=== PATIENT | male | born 1960 | race Caucasian/White ===

== ENCOUNTER 2017-05-02 10:08 | Day surgery (SDC) | payer OTHER ==
[2017-04-28 15:27] VITALS: BMI 34.0
[2017-05-02] MEDS ORDERED: PROPOFOL 20 ML ONE ×3 (10:26→11:05)
[2017-05-02 10:47] VITALS: TEMP 98.5
[2017-05-02 12:10] VITALS: BP 145/86; PULSE 60
--- NOTE | 2017-05-05 12:36 | PATH ---
Surgical Pathology Report Patient Name: YULI TODD [facility]. Rec. #: [id number] /Age/Gender: 1960 (Age: 56) / M Account: [id number] Location: [facility]ENDOSCOPY Taken: 05/02/2017 Received: 05/02/2017 Reported: 05/05/2017 Physicians: Gasper Og M.D. Specimen(s) Received A: BX DUODENUM B: BX ANTRUM C: BX TRANSVERSE COLON Clinical History GERD, family history of colonic polyps Postoperative diagnosis: Rule out celiac disease, rule out H. Pylori, mild gastritis, colonic polyp Final Diagnosis A. DUODENUM, BIOPSY: DUODENAL MUCOSA WITH NO PATHOLOGIC FINDINGS. Note: Features suggestive of celiac disease are not identified in this biopsy. B. ANTRUM, BIOPSY: MILD CHRONIC GASTRITIS. IMMUNOSTAIN IS NEGATIVE FOR H. PYLORI ORGANISMS. C. TRANSVERSE, BIOPSY: TUBULAR ADENOMA. Electronically Signed Oralia Chan M.D. Gross Description A. Received in formalin, labeled "duodenum" are 2 peter, irregular portions of soft tissue measuring 0.3 and 0.5 cm. in greatest dimension. The specimens are submitted in toto in one cassette. B. Received in formalin, labeled "antrum" are 2 peter, irregular portions of soft tissue measuring 0.3 and 0.4 cm. in greatest dimension. The specimens are submitted in toto in one cassette. C. Received in formalin, labeled "transverse" are 2 peter, irregular portions of soft tissue averaging 0.2 cm. in greatest dimension. The specimens are submitted in toto in one cassette. 05/02/201705/02/2017
== END 2017-05-02 12:14 | disposition home or self-care (01) ==
LOC: FASU-ENDO 10:08
PROVIDERS: ATTEND Internal Medicine Gastroenterology
PROC: 0DBL8ZX Excision of Transverse Colon, Via Natural or Artificial Opening Endoscopic, Diagnostic (ICD-10-PCS; principal; 2017-05-02 11:05)
PROC: 0DB98ZX Excision of Duodenum, Via Natural or Artificial Opening Endoscopic, Diagnostic (ICD-10-PCS; 2017-05-02 11:05)
PROC: 0DB68ZX Excision of Stomach, Via Natural or Artificial Opening Endoscopic, Diagnostic (ICD-10-PCS; 2017-05-02 11:05)
DX: Z86.010 Personal history of colon polyps (principal); K57.30 Diverticulosis of large intestine without perforation or abscess without bleeding; Z91.19 Patient's noncompliance with other medical treatment and regimen; R12 Heartburn; D12.3 Benign neoplasm of transverse colon; K29.50 Unspecified chronic gastritis without bleeding
CPT/HCPCS: 82962; 88305-TC; 88342-TC

== ENCOUNTER 2017-11-27 20:37 | Emergency (ER) | payer OTHER ==
[2017-11-27 20:58] VITALS: BP 164/88; PULSE 95; TEMP 98.1; BMI 34.0
[2017-11-27] MEDS ORDERED: IBUPROFEN 400 MG TABLET (FP) PO ONE ×2 (21:38→21:43)
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
== END 2017-11-27 22:00 | disposition home or self-care (01) ==
LOC: JERFT 20:37
DX: S39.012A Strain of muscle, fascia and tendon of lower back, initial encounter (principal); S60.812A Abrasion of left wrist, initial encounter; S60.811A Abrasion of right wrist, initial encounter; Y35.813A Legal intervention involving manhandling, suspect injured, initial encounter; Y93.89 Activity, other specified; Y92.488 Other paved roadways as the place of occurrence of the external cause; Y99.8 Other external cause status
CPT/HCPCS: 99281-25

== ENCOUNTER 2018-06-16 17:25 | Emergency (ER) | payer OTHER ==
[2018-06-16 17:48] VITALS: TEMP 97.5; BMI 35.6
[2018-06-16] MEDS ORDERED: ASPIRIN 81 MG CHEWABLE TABLETS PO ONE (18:23)
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
[2018-06-16] MEDS ORDERED: ASPIRIN 81 MG CHEWABLE TABLETS ONE (18:37)
[2018-06-16 18:57] LABS: BASO % 1.1 % (0-2.0); EOS % 1.7 % (0-4.5); HEMATOCRIT 42.8 % (35.4-49); HEMOGLOBIN 14.8 GM/dL (11.7-16.9); LYMPH % 20.7 % (8-40); MCH 31.4 pg (25.7-33.7); MCHC 34.7 g/dl (32.0-35.9); MEAN CELL VOLUME 90.7 fl (80-96); MEAN PLT VOLUME 7.7 fl (7.5-11.1); MONO % 6.7 % (3.8-10.2); NEUT % 69.8 % (42.8-82.8); PLATELET COUNT 247 K/MM3 (134-434); RBC 4.71 M/mm3 (4.00-5.60); RDW 14.3 % (11.9-15.9)
[2018-06-16 19:36] LABS: ALBUMIN 4.1 g/dl (3.4-5.0); ALK PHOS 129 U/L (45-117); ANION GAP 8 MMOL/L (8-16); BILIRUBIN,TOTAL 0.7 mg/dL (0.2-1); BLOOD UREA NITROGEN 19 mg/dL (7-18); CALCIUM 10.6 mg/dL (8.5-10.1); CHLORIDE 108 mmol/L (98-107); CO2 23 mmol/L (21-32); CREATININE 0.9 mg/dL (0.55-1.3); GLUCOSE,RANDOM 119 mg/dL (74-106); LIPASE 106 U/L (73-393); POTASSIUM 4.1 mmol/L (3.5-5.1); SGOT/AST 48 U/L (15-37); SGPT/ALT 59 U/L (13-61); SODIUM 139 mmol/L (136-145); TOT PROT 7.2 g/dl (6.4-8.2)
[2018-06-17 00:31] VITALS: BP 137/86; PULSE 66
--- NOTE | 2018-06-19 10:42 | EKG ---
Test Reason : Blood Pressure : / mmHG Vent. Rate : 064 BPM Atrial Rate : 064 BPM P-R Int : 154 ms QRS Dur : 086 ms QT Int : 406 ms P-R-T Axes : 058 054 056 degrees QTc Int : 418 ms NORMAL SINUS RHYTHM NORMAL ECG WHEN COMPARED WITH ECG OF 01-SEP-2010 04:33, NO SIGNIFICANT CHANGE WAS FOUND Confirmed by YEE MCDANIELS MD ([id number]) on 06/19/2018 10:41:54 AM Referred By: Confirmed By:YEE MCDANIELS MD
== END 2018-06-17 00:26 | disposition home or self-care (01) ==
LOC: JER 17:25
DX: R07.9 Chest pain, unspecified (principal); I10 Essential (primary) hypertension; E11.9 Type 2 diabetes mellitus without complications; R42 Dizziness and giddiness; F41.9 Anxiety disorder, unspecified
CPT/HCPCS: 36415; 71046-TC-FY; 71275-TC; 74175-TC; 80053; 82550; 83690; 84484; 85025; 93005; 93010; 99285-25

== ENCOUNTER 2019-12-08 08:22 | Emergency (ER) | payer OTHER ==
--- NOTE | 2019-12-08 08:33 | PDOC ---
History of Present Illness - General Chief Complaint: Blood Pressure Problem Stated Complaint: HIGH BLOOD PRESSURE Time Seen by Provider: 12/08/19 08:32 History Source: Patient, EMS, Old Records Exam Limitations: No Limitations - History of Present Illness Initial Comments: 12/08/19 08:32 Martín Huff is a 59M with PMH HTN, DM, HTN, gout, ZOFIA, asthma, anxiety, chronic back pain, parathyroid resection, presenting with elevated blood pressure and headache. Patient reports that he woke up this morning and felt like his blood pressure was high, checked it and it was SBP 195. Took his anti-HTN medications including atenolol, verapamil, and hydralazine, and after felt a bit dizzy with positional nausea worse when reclining and had to lie down. Reports that he normally feels dizzy after taking his medications, but was concerned about BP and called EMS for evaluation. Also felt anxious, took 0.25mg prescribed Xanax. Checks BP 3x per day, used to be 120/80, but had insurance changes and had to get long-acting verapamil instead of short-acting, BP has since been 160/90. Has new PMD due to insurance change, [facility] at [facility], only seen once for evaluation before parathyroid resection in August. Has recently changed prescription for glasses, trialled for 3 weeks but has had eye strain and headaches while wearing them, went to urgent care and given eye drops and prednisone for eye muscle swelling, has since switched to old glasses. Denies any recent illness, no F/V, no vomiting, no diarrhea, no urinary sx, no abd pain. Had gout 2 weeks ago and resolved with colchicine and NSAIDs. Chronic lower back pain on Flexeril. PSH parathyroidectomy and left testicle removal as a teenager. Denies alcohol/drugs/tobacco. NKDA. Past History - Medical History Allergies/Adverse Reactions: Allergies Allergy/AdvReac Type Severity Reaction Status Date / Time No Known Drug Allergies Allergy Verified 12/08/19 08:57 tuna oil AdvReac Severe VERTIGO Verified 12/08/19 08:57 Home Medications: Ambulatory Orders Atenolol [Tenormin] 25 mg PO BID 10/21/11 Clonazepam [Klonopin] 0.5 mg PO HS PRN 10/21/11 Verapamil HCl [Calan] 160 mg PO HS 12/16/15 hydrALAZINE HCL [Apresoline -] 10 mg PO QID 12/16/15 Acetaminophen 650 mg PO ASDIR PRN 04/28/17 Alprazolam [Xanax] 0.5 mg PO ASDIR PRN 04/28/17 Aspirin [ASA -] 81 mg PO DAILY 04/28/17 Atorvastatin Ca [Lipitor] 10 mg PO HS 04/28/17 Cholecalciferol (Vitamin D3) [Vitamin D3] 2,000 unit PO DAILY 04/28/17 Ibuprofen [Advil -] 400 mg PO TID PRN 04/28/17 [place]-3S/Dha/Epa/Fish Oil [Fish Oil 1,200 mg Softgel] 1 each PO HS 04/28/17 metFORMIN HCL [Metformin HCl] 500 mg PO BID 04/28/17 Meclizine HCl [Antivert -] 25 mg PO PRN 06/16/18 Pantoprazole Sodium [Protonix] 40 mg PO DAILY 06/16/18 Potassium Citrate [Potassium Citrate ER] 10 meq PO DAILY 06/16/18 Methocarbamol [Robaxin -] 750 mg PO BID PRN #14 tablet MDD 2 tab 06/17/18 Anemia: No Asthma: No Cancer: No Cardiac Disorders: No CVA: No COPD: No CHF: No Dementia: No Diabetes: Yes (NIDDM,"MILD") GI Disorders: Yes (Gallstone,BLEEDING HEMORRHOIDECTOMY;?IBS? SIGMOIDOSCOPY IN HIS S) Disorders: No HTN: Yes Hypercholesterolemia: Yes Liver Disease: Yes (FATTY LIVER) Psychiatric Problems: Yes (anxiety) Seizures: No Thyroid Disease: No - Surgical History Abdominal Surgery: No Appendectomy: No Cardiac Surgery: No Cholecystectomy: No Lung Surgery: No Neurologic Surgery: No Orthopedic Surgery: No - Immunization History Immunization Up to Date: No - Psycho-Social/Smoking History Smoking Status: No Smoking History: Never smoked Have you smoked in the past 12 months: No Number of Cigarettes Smoked Daily: 0 If you are a former smoker, when did you quit?: 2004 Cigars Per Day: 0 Review of Systems - Review of Systems Able to Perform ROS?: Yes Constitutional: No: Symptoms Reported HEENTM: Yes: Eye Pain. No: Blurred Vision, Recent change in vision Respiratory: No: Symptoms reported Cardiac (ROS): No: Symptoms Reported ABD/GI: Yes: Nausea. No: Constipated, Diarrhea, Poor Appetite, Poor Fluid Intake, Vomiting, Abdominal cramping : No: Symptoms Reported Musculoskeletal: Yes: Back Pain Integumentary: No: Symptoms Reported Neurological: Yes: Headache Psychiatric: Yes: Anxiety Endocrine: No: Symptoms Reported Hematologic/Lymphatic: No: Symptoms Reported All Other Systems: Reviewed and Negative *Physical Exam - Physical Exam General Appearance: Yes: Nourished, Appropriately Dressed, Obese, Other (tall, resting comfortably in bed in NAD). No: Apparent Distress HEENT: positive: EOMI, TRACY, Normal Voice, Symmetrical, Pharynx Normal, Hearing Grossly Normal. negative: Scleral Icterus (R), Scleral Icterus (L), Pharyngeal Erythema, Tonsillar Exudate, Tonsillar Erythema Neck: positive: Trachea midline, Normal Thyroid, Supple. negative: Tender, Rigid, Lymphadenopathy (R), Lymphadenopathy (L), Tender lateral, Tender midline Respiratory/Chest: positive: Lungs Clear, Normal Breath Sounds. negative: Chest Tender, Respiratory Distress, Accessory Muscle Use, Crackles, Rales, Rhonchi, Stridor, Wheezing Cardiovascular: positive: Regular Rhythm, Regular Rate. negative: Murmur, Tachycardia Gastrointestinal/Abdominal: positive: Normal Bowel Sounds, Flat, Soft. negative: Tender, Organomegaly, Pulsatile Mass, Guarding, Rebound Musculoskeletal: positive: Normal Inspection. negative: CVA Tenderness, Decreased Range of Motion, Vertebral Tenderness Extremity: positive: Normal Capillary Refill, Normal Inspection, Normal Range of Motion, Pelvis Stable. negative: Tender, Pedal Edema, Swelling, Calf Tenderness Integumentary: positive: Normal Color, Dry, Warm Neurologic: positive: prescription benefit specialist II-XII NML intact, Fully Oriented, Alert, Normal Mood/Affect, Normal Response, Motor Strength 5/5, Finger to Nose (normal), Other (gait normal, bilateral vision 20/20 with corrective lenses). negative: Facial Droop, Sensory Deficit ED Treatment Course - LABORATORY CBC & Chemistry Diagram: 12/08/19 09:33 12/08/19 09:33 Medical Decision Making - Medical Decision Making 12/08/19 08:33 Patient has PMH HTN, DM with recent medication changes and chronic eye strain and headaches with new glasses prescription, presents with elevated BP at home with lightheadedness and nausea only after taking anti-HTN medications. BP now 150/70, patient asymptomatic, reports eye strain but has excellent vision with and without glasses as well as some dizziness, no nausea, no vomiting, no HUIZAR. Given lower BP and no symptoms, lower concern for HTN emergency. Considering ACS, hyperglycemia, infection as etiology for HTN, but likely related to medication change. Getting CMP/CBC/ECG/BGM/CP for evaluation of HTN. 12/08/19 09:57 BGM 141 ECG sinus bradycardia, HR 55, QTc 407, no AISLINN/D or TWI. Slow HR consistent with beta blockade and AM medications. Labs notable for: - CBC WNL - CMP WNL 12/08/19 10:33 No abnormalities noted on labs or ECG. Patient feeling well. Discussed importance of BP management medications and follow-up with professor of chemical engineering for glasses prescription. Patient will see his regular doctors for further care. Stable for d/c home. Discharge - Discharge Information Problems reviewed: Yes Clinical Impression/Diagnosis: Elevated blood pressure reading Condition: Stable Disposition: HOME - Follow up/Referral Referrals: Rony Ernandez [Non Staff, Medical] - - Patient Discharge Instructions Patient Printed Discharge Instructions: DI for High Blood Pressure, How to Monitor Your Blood Pressure at Home Additional Instructions: Today you were evaluated for high blood pressure and headache. Your labs are all normal, and you do not have any emergent diseases that need treatment. Your bl ood pressure changes throughout the day. Check it once a day at the same time every day to track changes. If it remains over 150/90, please contact your doctor to change your medications. If your blood pressure is over 180/90, recheck it a bit later when you are more calm, as being stressed can cause high blood pressure. Your eyeglasses are likely the wrong prescription, and you are getting headaches from this. Please see your professor of chemical engineering or roll forming supervisor for further care, and avoid wearing glasses that cause issues. Otherwise, take our medications as prescribed. If you experience any worsening headache, nausea, vomiting, vision changes, chest pain, dizziness, or any other new or concerning symptoms, please return to the emergency room. - Post Discharge Activity
--- OUTSIDE RECORDS SUMMARY | 2019-12-08 08:45 | XMS ---
:1960 Author Organization [facility] Care Team Providers Name Role Phone Jeffery Hickman MD Unavailable Unavailable [facility], [facility] Unavailable Unavailable Ondina Cagle NP Unavailable Unavailable Gisele Maddox MD Unavailable Unavailable Re-disclosure Warning The records that you are about to access may contain information from federally- assisted alcohol or drug abuse programs. If such information is present, then the following federally mandated warning applies: This information has been disclosed to you from records protected by federal confidentiality rules (42 CFR part 2). The federal rules prohibit you from making any further disclosure of this information unless further disclosure is expressly permitted by the written consent of the person to whom it pertains or as otherwise permitted by 42 CFR part 2. A general authorization for the release of medical or other information is NOT sufficient for this purpose. The Federal rules restrict any use of the information to criminally investigate or prosecute any alcohol or drug abuse patient.The records that you are about to access may contain highly sensitive health information, the redisclosure of which is protected by Article 27-F of the [place] State Public Health law. If you continue you may haveaccess to information: Regarding HIV / AIDS; Provided by facilities licensed or operated by the [facility] Office of Mental Health; or Provided by the [facility] Office for People With Developmental Disabilities. If such information is present, then the following [facility] mandated warning applies: This information has been disclosed to you from confidential records which are protected by state law. State law prohibits you from making any further disclosure of this information without the specific written consent of the person to whom it pertains, or as otherwise permitted by law. Any unauthorized further disclosure in violation of state law may result in a fine or nursing home sentence or both. A general authorization for the release of medical or other information is NOT sufficient authorization for further disclosure. Advance Directives Directive Description Chiropractic Teacher Stringed Instrument Repairer Status Observation Data Description Source(s ) Advance Y - completed [place] directive [facility] Allergies and Adverse Reactions Type Description Substance Reaction Status Data Source(s ) Drug allergy topiramate topiramate DOUBLE VISION White Sy [facility] Drug allergy paroxetine paroxetine DIZZINESS MO [facility] Drug allergy oxycodone oxycodone nausea [facility] Drug allergy DEVON Inhibitors DEVON Inhibitors COUGH [facility] Drug allergy acetaminophen acetaminophen nausea [facility] No Known No Known Allergies No Known Allergies eCW2 (Open Allergies Door [facility]) No Known No Known Allergies No Known Allergies eCW2 (Open Allergies Door [facility]) No Known No Known Allergies No Known Allergies eCW2 (Open Allergies Door [facility]) No Known No Known Allergies No Known Allergies eCW2 (Open Allergies Door [facility]) Encounters Encounter Providers Location Date Indications Data Source(s ) Outpatient Attender: Jeffery 06/22/2019 to LEFT [place] Vick PORRAS 09:45:00 HYPERPARATHYROIDISM LEFT Hospital AM EDT - THYROID NODULE 08/24/2019 09:12:00 AM EDT to LEFT HYPERPARATHYROIDISM LEFT THYROID NODULE Patient discharged. 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 Outpatient Attender: Gisele 01/18/2019 HYPERPARATHYROIDISM [place] Maddox MD 04:22:00 PM EST (ICD-252.01) Hospita l HYPERPARATHYROIDISM (ICD-252.01) [place] [facility] [place] [facility] 05/16/2018 12:00:00 AM eCW2 ([facility] EDT [facility]) [place] [facility] [place] [facility] 03/13/2018 12:00:00 AM eCW2 ([facility] EST [facility]) [place] [facility] [place] [facility] 02/16/2018 12:00:00 AM eCW2 (Open Door [facility]) [place] [facility] [place] [facility] 01/31/2018 12:00:00 AM eCW2 (Open Door [facility]) Functional Status Immunizations Vaccine Date Status Description Data Source(s) No Known Immunizations completed eCW2 (Open Door [facility]) No Known Immunizations completed eCW2 (Open Door [facility]) No Known Immunizations completed eCW2 (Open [facility]) No Known Immunizations completed eCW2 (Open Door [facility]) Medications Medication Brand Start Product Dose Route Administrative Pharmacy [facility] Indications Reaction Description Data Name Date Form Instructions Instructions Source(s) Ketorolac Ketoro 08/23/ TABLET 10 mg ORAL active W gloria Tromethamin lac 2020 [place] e 10 MG Tromet 01:40: Hospital Oral Tablet hamine 00 PM EDT potassium Potass SUSTAINE 15 ORAL active Wh ite citrate 15 ium D meq [place] MEQ Citrat RELEASE Hospital Extended e TABLET Release Oral Tablet [Urocit-K] Potassium Citrate pantoprazol pantop active 1 tab(s) eCW2 (Open e 40 MG razole Door Delayed 40 mg Family Release Medical Oral Tablet [place]) pantoprazol e 40 mg Hydrochlori UNK active eCW2 ( Open c Acid Door [facility]) Hydrochlori UNK active eCW2 ( Open c Acid Door [facility]) Verapamil Verapa TABLET 120 ORAL active Whit e hydrochlori mil mg [place] de 120 MG H[facility] Hospital Oral Tablet Verapamil Hcl atorvastati atorva active 1 tab(s) eCW2 (Open n 10 MG statin Door Oral Tablet 10 mg Family atorvastati Medical n 10 mg [place]) Na 650 active White Bicarbinate [place] [facility] verapamil UNK active 1 cap(s) eCW2 (Open 120 mg/24 Door hours [facility]) 24 HR metfor active 1 tab(s) eCW2 ( Open Metformin min Door hydrochlori 500 mg Family de 500 MG Medical Extended Center) Release Oral Tablet metformin 500 mg Atenolol 25 Atenol TABLET 25 mg ORAL active W gloria MG Oral ol [place] Tablet Hospital pantoprazol pantop active 1 tab(s) eCW2 (Open e 40 MG razole Door Delayed 40 mg Family Release Medical Oral Tablet [place]) pantoprazol e 40 mg 24 HR metfor active 1 tab(s) eCW2 ( Open Metformin min Door hydrochlori 500 mg Family de 500 MG [facility] Extended [place]) Release Oral Tablet metformin 500 mg Alprazolam Xanax active 1 tab(s) eC W2 (Open 0.25 MG 0.25 Door Oral Tablet mg Family [Xanax] Medical Xanax 0.25 [place]) mg verapamil UNK active 1 cap(s) eCW2 (Open 120 mg/24 Door hours [facility]) pantoprazol Pantop TABLET 40 mg ORAL active W gloria e 40 MG razole [place] Delayed Sodium Hospital Release Oral Tablet [Protonix] Pantoprazol e Sodium Hydrochlori UNK active eCW2 ( Open c Acid Door [facility]) Hydralazine Hydral TABLET 20 mg ORAL active W [place] Hydrochlori azine [place] de 50 MG [facility] Oral Tablet Hydralazine Hcl Alprazolam Xanax active 1 tab(s) eC W2 (Open 0.25 MG 0.25 Door Oral Tablet mg Family [Xanax] Medical Xanax 0.25 [place]) mg 24 HR Metfor TABLET 500 ORAL active White Metformin min 24 HR mg [place] hydrochlori Hcl SUSTAINE Hosp ital de 500 MG D Extended RELEASE Release Oral Tablet [Glucophage ] Metformin Hcl atorvastati atorva active 1 tab(s) eCW2 (Open n 10 MG statin Door Oral Tablet 10 mg Family atorvastati Medical n 10 mg Center) Alprazolam Xanax active 1 tab(s) eC W2 (Open 0.25 MG 0.25 Door Oral Tablet mg [facility] [Xanax] Medical Xanax 0.25 Center) mg verapamil UNK active 1 cap(s) eCW2 (Open 120 mg/24 Door hours [facility]) verapamil UNK active 1 cap(s) eCW2 (Open 120 mg/24 Door hours [facility]) 24 HR metfor active 1 tab(s) eCW2 ( Open Metformin min Door hydrochlori 500 mg Family de 500 MG [facility] Extended [facility]) Release Oral Tablet metformin 500 mg [place]-3-Aci CAPSULE 1 ORAL active Whi te d Ethyl {Caps [place] Esters [facility]} [facility] pantoprazol pantop active 1 tab(s) eCW2 (Open e 40 MG razole Door Delayed 40 mg Family Release Medical Oral Tablet [place]) pantoprazol e 40 mg 24 HR metfor active 1 tab(s) eCW2 ( Open Metformin min Door hydrochlori 500 mg Family de 500 MG Medical Extended [place]) Release Oral Tablet metformin 500 mg atorvastati Atorva TABLET 10 mg ORAL active [place] n 10 MG statin [place] Oral Tablet [facility] [Lipitor] m Atorvastati n Calcium Hydrochlori UNK active eCW2 ( Open c Acid Door [facility]) atorvastati atorva active 1 tab(s) eCW2 (Open n 10 MG statin Door Oral Tablet 10 mg [facility] atorvastati Medical n 10 mg [place]) Alprazolam Xanax active 1 tab(s) eC W2 (Open 0.25 MG 0.25 Door Oral Tablet mg [facility] [Xanax] Medical Xanax 0.25 [place]) mg atorvastati atorva active 1 tab(s) eCW2 (Open n 10 MG statin Door Oral Tablet 10 mg [facility] atorvastati Medical n 10 mg [place]) pantoprazol pantop active 1 tab(s) eCW2 (Open e 40 MG razole Door Delayed 40 mg Family Release Medical Oral Tablet [place]) pantoprazol e 40 mg Insurance Providers Payer name Policy type Policy ID Covered Covered democrat's Policy P chidi / Coverage democrat ID relationship to [place] Inf ormation type o[place]a AFFINITY [id number] PT 101 HEALTH PLAN [employer] [id number] PT [id number] 101 HEALTH PLAN [facility] [id number] PT [id number] PLAN POS [facility] [id number] PT [id number] PLAN POS [facility] [id number] PT [id number] PLAN [place] [id number] FA [id number] 1 HEALTHCARE O [facility] [id number] FA [id number] [facility] [id number] SP [id number] [employer] 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 [id number] SP [id number] HIP HMO [id number] SP [id number] Problems, Conditions, and Diagnoses Code Display Name Description Problem Type Effective Data Dates Source(s) Unknown Problems Unknown Problem eCW2 (Op en Problems Door [facility]) Unknown Problems Unknown Problem eCW2 (Op en Problems Door [facility]) Unknown Problems Unknown Problem eCW2 (Op en Problems Door [facility]) Unknown Problems Unknown Problem eCW2 (Op en Problems Door [facility]) G47.33 Obstructive sleep apnea G47.33 Diagnosis 08/24/2019 [place] (adult) (pediatric) 09:11:00 AM Hosp ital EDT Z88.5 Allergy status to Z88.5 Diagnosis 08/24/2019 [place] narcotic agent status 09:11:00 AM Ho spital EDT Z79.899 Other rn long term care Z79.899 Diagnosis 08/24/2019 [place] (current) drug therapy 09:11:00 AM H ospital EDT M10.9 Gout, unspecified M10.9 Diagnosis 08/24/2019 [place] 09:11:00 AM Hospital EDT 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 e [place] unspecified 11:19:00 AM Hospital EST Surgeries/Procedures Procedure Description Date Indications Data Source(s) Oxygen therapy 08/24/2019 [facility] (procedure) 12:00:00 AM EDT PRDNTL SCAL&ROOT PLAN 05/16/2018 eCW2 ( Open Door 4></div>TEETH-QUAD 12:00:00 AM EDT [facility]) Dental Office Visit - 05/16/2018 eCW2 ( Open Door Routine 12:00:00 AM EDT [facility]) COMP ORAL EVALUATION - 01/31/2018 eCW2 (Open Door NEW/EST PT 12:00:00 AM EST [facility] ADDITIONAL PA X-RAY 01/31/2018 eCW2 (Op en Door 12:00:00 AM EST [facility] ADDITIONAL PA X-RAY 01/31/2018 eCW2 (Op en Door 12:00:00 AM EST [facility] ADDITIONAL PA X-RAY 01/31/2018 eCW2 (Op en Door 12:00:00 AM EST [facility] ADDITIONAL PA X-RAY 01/31/2018 eCW2 (Op en Door 12:00:00 AM EST [facility]) BITEWINGS - FOUR FILMS 01/31/2018 eCW2 ([facility] 12:00:00 AM EST [facility]) X-RAY PANORAMIC - MAXIL 01/31/2018 eCW2 (Open Door & NATALIA SINGLE 12:00:00 AM EST Family [facility]) Results ID Date Data Source [id number] 08/24/2019 02:22:00 PM EDT [facility] Custom 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 in Capillary blood by Glucometer ID Date Data Source [id number] 08/24/2019 01:26:00 PM EDT [facility] Name Value Range Interpretation Code Description Data Supporting Source(s) Document(s ) 15 MINS 33.9 pg/mL [facility] ID Date Data Source [id number] 08/24/2019 01:15:00 PM EDT [facility] Name Value Range Interpretation Code Description Data Supporting Source(s) Document(s ) 5 MINS 37.5 pg/mL [facility] ID Date Data Source [id number] 08/24/2019 01:10:00 PM EDT [facility] TIME ZERO SPECIMEN Name Value Range Interpretation Description Data Sup porting Code Source(s) Document(s ) MANIPULATION 78.3 [place] IOPTH pg/mL Hospital ID Date Data Source [id number] 08/24/2019 12:50:00 PM EDT [facility] Name Value Range Interpretation Description Data Sup porting Code Source(s) Document(s ) BASELINE 283.0 [place] IOPTH pg/mL Hospital ID Date Data Source [id number] 08/09/2019 11:36:00 AM EDT [facility] Name Value Range Interpretation Code Description Data Mago rce(s) Supporting Document(s ) COV2 [facility] This lab was ordered by ANUPAMA STODDARD and reported by [facility]. Procedure Social History Code Duration Value Status Description Data Source(s ) Smoking Unknown if ever completed Unknown if ever [facility] smoked smoked Hospital Smoking Unknown if ever completed Unknown if ever eCW2 (Open Door smoked smoked [facility]) Smoking Unknown if ever completed Unknown if ever eCW2 (Open Door smoked smoked [facility]) Smoking Unknown if ever completed Unknown if ever eCW2 (Open Door smoked smoked [facility]) Smoking Unknown if ever completed Unknown if ever eCW2 (Open Door smoked smoked [facility]) Vital Signs ID Date Data Source UNK Name Value Range Interpretation Code Description Data Source(s) Diastolic blood 90 mm[Hg] 90 mm[Hg] [facility] pressure Hospital Systolic blood 148 mm[Hg] 148 mm[Hg] [facility] pressure Hospital Respiratory rate 16 /min 16 /min [facility] Heart rate 77 /min 77 /min [facility] Body temperature 36.31051 Donna 36.83091 Donna [facility] Body temperature 98.0 [degF] 98.0 [degF] [facility] Body mass index 35.9 kg/m2 35.9 kg/m2 [facility] (BMI) [Ratio] Hospital Body weight 272 [lb_av] 272 [lb_av] [facility] Diastolic blood mm[Hg] eCW2 (Ope n Door pressure [facility]) Systolic blood mm[Hg] eCW2 (Open Door pressure [facility]) Diastolic blood mm[Hg] eCW2 (Ope n Door pressure [facility]) Systolic blood mm[Hg] eCW2 (Open Door pressure [facility]) Diastolic blood 84 mm[Hg] 84 mm[Hg] eCW2 (Ope n Door [facility]) Systolic blood 132 mm[Hg] 132 mm[Hg] eCW2 (Open Door [facility])
[2019-12-08 08:57] VITALS: BP 150/78; PULSE 62; TEMP 98.2; BMI 35.3
--- NOTE | 2019-12-08 09:00 | PDOC ---
Attending Attestation - Resident Resident Name: Rony Velasquez - ED Attending Attestation I have performed the following: I have examined & evaluated the patient, The case was reviewed & discussed with the resident, I agree w/resident's findings & plan, Exceptions are as noted - HPI HPI: 12/08/19 08:55 59YOM with h/o HTN, DM, trigeminal neuralgia, and anxiety who p/w subacute headache and b/l eye pain, lightheadedness, anxiety, and c/o high blood pressure at home. He notes insurance changes and multiple HTN medication changes lately, also was seen at [facility] for the b/l eye pain and states he had swollen eye muscles requiring NSAID drops and steroids. BP at home was around 195/100 this morning at 4:30am; subsequently took his normal meds. Denies any new change in HUIZAR character, vomiting, chest pain, SOB, vertigo, neck pain, n/t/w focally, or other symptoms. - Physicial Exam PE: Initial Vital Signs Temp Pulse Resp BP Pulse Ox 98.2 F 62 18 150/78 98 12/08/19 08:54 12/08/19 08:54 12/08/19 08:54 12/08/19 08:54 12/08/19 08:54 12/08/19 11:03 GENERAL: well-appearing, A/Ox4, no distress, answers questions appropriately, wearing tinted glasses HEENT: PERRLA, EOMI, moist mucous membranes NECK/BACK: no midline ttp, no spinal step-off or deformity, no hematoma, full ROM, neck supple CARDIOVASCULAR: regular rate/rhythm, no MGR, strong peripheral pulses, capillary refill <2 seconds, extremities wwp, no edema LUNGS/RESPIRATORY: no respiratory distress, CTAB GI/ABDOMEN: symmetric kuvd-ax-ozqa, normoactive BS, soft, no ttp, no midline pulsatile masses : no CVA tenderness MSK/EXTREMITIES: no muscle atrophy, no acute deformity SKIN: warm and dry, no pallor, no jaundice, no rash, no pathologic-appearing bruising, no skin breakdown, no cuts, no lesions NEUROLOGICAL: GCS 15, CN II-XII grossly intact, 5/5 strength proximally and distally, no facial droop, normal gait, normal cerebellar signs, no ataxia - Medical Decision Making 12/08/19 10:15 59YOM with h/o HTN, pre-DM, trigeminal neuralgia, p/w report of high BP in setting of mild lightheadedness (resolved) and subacute HUIZAR. 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 HUIZAR not worse on awakening in the AM, no B symptoms, trauma, fever, vision loss, syncope, n/t/w focally, sudden onset, etc. Possible tension/cluster/migraine/other incl. primary cough HUIZAR, exertional HUIZAR, postcoital HUIZAR, etc. Possible trigeminal neuralgia as patient has had this before, less likely zoster without lesions or tenderness to light palpation. Unlikely ICH given lack of red flags. Unlikely glaucoma without vision changes or eye pain. Provider Orders Category Date Time Status ELECTROCARDIOGRAM [CARD] Stat Cardiology 12/08/19 09:16 Ordered BGM (Blood Glucose Monitoring) NOW Care 12/08/19 09:16 Active EKG needed NOW Care 12/08/19 09:16 Completed CARDIAC PROFILE ([facility]) Stat Lab 12/08/19 09:33 Completed CBC WITH DIFFERENTIAL Stat Lab 12/08/19 09:33 Results COMP METABOLIC PANEL Stat Lab 12/08/19 09:33 Completed POC GLUCOSE TESTING Routine Lab 12/08/19 09:51 Completed Lab Results WBC 11.3 K/mm3 (4.0-10.0) H 12/08/19 09:33 RBC 4.93 M/mm3 (4.00-5.60) 12/08/19 09:33 Hgb 15.5 GM/dL (11.7-16.9) 12/08/19 09:33 Hct 44.0 % (35.4-49) 12/08/19 09:33 MCV 89.2 fl (80-96) 12/08/19 09:33 MCH 31.3 pg (25.7-33.7) 12/08/19 09:33 MCHC 35.2 g/dl (32.0-35.9) 12/08/19 09:33 RDW 14.5 % (11.9-15.9) 12/08/19 09:33 Plt Count 252 K/MM3 (134-434) 12/08/19 09:33 MPV 7.1 fl (7.5-11.1) L 12/08/19 09:33 Absolute Neuts (auto) 8.5 K/mm3 (1.5-8.0) H 12/08/19 09:33 Neutrophils % 75.0 % (42.8-82.8) 12/08/19 09:33 Lymphocytes % 16.5 % (8-40) D 12/08/19 09:33 Monocytes % 7.2 % (3.8-10.2) 12/08/19 09:33 Eosinophils % 0.4 % (0-4.5) 12/08/19 09:33 Basophils % 0.9 % (0-2.0) 12/08/19 09:33 Nucleated RBC % 0 % (0-0) 12/08/19 09:33 Sodium 137 mmol/L (136-145) 12/08/19 09:33 Potassium 4.4 mmol/L (3.5-5.1) 12/08/19 09:33 Chloride 106 mmol/L (98-107) 12/08/19 09:33 Carbon Dioxide 22 mmol/L (21-32) 12/08/19 09:33 Anion Gap 9 MMOL/L (8-16) 12/08/19 09:33 BUN 31.6 mg/dL (7-18) H 12/08/19 09:33 Creatinine 1.0 mg/dL (0.55-1.3) 12/08/19 09:33 Est GFR (CKD-EPI)AfAm 96.40 12/08/19 09:33 Est GFR (CKD-EPI)NonAf 83.18 12/08/19 09:33 POC Glucometer 141 UNITS (80-120) 12/08/19 09:51 Random Glucose 142 mg/dL (74-106) H 12/08/19 09:33 Calcium 9.2 mg/dL (8.5-10.1) 12/08/19 09:33 Total Bilirubin 0.7 mg/dL (0.2-1) 12/08/19 09:33 AST 24 U/L (15-37) 12/08/19 09:33 ALT 51 U/L (13-61) 12/08/19 09:33 Alkaline Phosphatase 89 U/L (45-117) 12/08/19 09:33 Creatine Kinase 53 U/L (26-308) 12/08/19 09:33 Troponin I < 0.02 ng/ml (0.00-0.05) 12/08/19 09:33 Total Protein 7.5 g/dl (6.4-8.2) 12/08/19 09:33 Albumin 4.0 g/dl (3.4-5.0) 12/08/19 09:33 This Pt has gotten significant relief of symptoms while in the ED. On last reassessment, vitals are wnl, pain is reasonably controlled, and exam is benign. Workup is not concerning for emergency-level pathology at this time. This Pt is appropriate for discharge with close outpatient follow up. He is comfortable with this plan and will follow up with his PCP in 1-3 days. They agree to return to the ED with any new/worsening symptoms. Specific return precautions are discussed and they will come back to the ER if necessary. Heart Score/ECG Review #1 Sinus rhythm, rate 55, normal axis and intervals, isolated TWI in V3 otherwise no ST-T changes Discharge - Discharge Information Problems reviewed: Yes Clinical Impression/Diagnosis: Elevated blood pressure reading Condition: Stable Disposition: HOME - Admission No - Follow up/Referral Referrals: Rony Ernandez [Non Staff, Medical] - - Patient Discharge Instructions Patient Printed Discharge Instructions: DI for High Blood Pressure, How to Monitor Your Blood Pressure at Home Additional Instructions: Today you were evaluated for high blood pressure and headache. Your labs are all normal, and you do not have any emergent diseases that need treatment. Your blood pressure changes throughout the day. Check it once a day at the same time every day to track changes. If it remains over 150/90, please contact your doctor to change your medications. If your blood pressure is over 180/90, recheck it a bit later when you are more calm, as being stressed can cause high blood pressure. Your eyeglasses are likely the wrong prescription, and you are getting headaches from this. 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 Otherwise, take our medications as prescribed. If you experience any worsening headache, nausea, vomiting, vision changes, chest pain, dizziness, or any other new or concerning symptoms, please return to the emergency room. - Post Discharge Activity
[2019-12-08 09:49] LABS: BASO % 0.9 % (0-2.0); EOS % 0.4 % (0-4.5); HEMOGLOBIN 15.5 GM/dL (11.7-16.9); LYMPH % 16.5 % (8-40); MCH 31.3 pg (25.7-33.7); MCHC 35.2 g/dl (32.0-35.9); MEAN CELL VOLUME 89.2 fl (80-96); MEAN PLT VOLUME 7.1 fl (7.5-11.1); MONO % 7.2 % (3.8-10.2); PLATELET COUNT 252 K/MM3 (134-434); RBC 4.93 M/mm3 (4.00-5.60); RDW 14.5 % (11.9-15.9); WHITE BLOOD COUNT 11.3 K/mm3 (4.0-10.0)
[2019-12-08 10:19] LABS: ALK PHOS 89 U/L (45-117); ANION GAP 9 MMOL/L (8-16); BILIRUBIN,TOTAL 0.7 mg/dL (0.2-1); BLOOD UREA NITROGEN 31.6 mg/dL (7-18); CALCIUM 9.2 mg/dL (8.5-10.1); CHLORIDE 106 mmol/L (98-107); CO2 22 mmol/L (21-32); GLUCOSE,RANDOM 142 mg/dL (74-106); POTASSIUM 4.4 mmol/L (3.5-5.1); SGOT/AST 24 U/L (15-37); SGPT/ALT 51 U/L (13-61); SODIUM 137 mmol/L (136-145); TOT PROT 7.5 g/dl (6.4-8.2)
[2019-12-08 12:18] LABS: ANISOCYTOSIS 0; HELMET CELLS 0; HOWELL-JOLLY BODIES 0; MACROCYTOSIS 0; OVALOCYTE 0; PLATELET ESTIMATE NORMAL; ROULEAU 0; SICKELED CELLS 0; TARGET CELLS 0; TEAR DROP CELLS 0; TOXIC GRANULATION 0
--- NOTE | 2019-12-09 20:05 | EKG ---
Test Reason : Blood Pressure : / mmHG Vent. Rate : 055 BPM Atrial Rate : 055 BPM P-R Int : 150 ms QRS Dur : 086 ms QT Int : 426 ms P-R-T Axes : 041 018 028 degrees QTc Int : 407 ms SINUS BRADYCARDIA OTHERWISE NORMAL ECG WHEN COMPARED WITH ECG OF 16-JUN-2018 17:32, NO SIGNIFICANT CHANGE WAS FOUND Confirmed by ELINOR LUGO MD ([id number]) on 12/09/2019 8:05:02 PM Referred By: Confirmed By:ELINOR LUGO MD
== END 2019-12-08 11:08 | disposition home or self-care (01) ==
LOC: JER 08:22
DX: R03.0 Elevated blood-pressure reading, without diagnosis of hypertension (principal)
CPT/HCPCS: 36415; 80053; 82550; 82962; 84484; 85025; 93005; 93010; 99284-25

== ENCOUNTER 2020-06-05 10:34 | Emergency (ER) | payer OTHER ==
[2020-06-05 10:44] VITALS: BMI 27.5
[2020-06-05] MEDS ORDERED: ONDANSETRON 4 MG/2 ML VIAL IVPUSH ONE (11:49)
[2020-06-05] MEDS ORDERED: SODIUM CHLORIDE 1,000 ML IV STA (11:49)
[2020-06-05] MEDS ORDERED: ACETAMINOPHEN 1000 MG/100 ML VIAL (NON FORMULARY) IVPB ONE (11:49)
[2020-06-05] MEDS ORDERED: ONDANSETRON 4 MG/2 ML VIAL ONE (12:10)
[2020-06-05] MEDS ORDERED: ACETAMINOPHEN INJECTION 100 ML IVPB ONE (12:10)
[2020-06-05 13:24] LABS: HEMATOCRIT 42.4 % (35.4-49); HEMOGLOBIN 14.5 GM/dL (11.7-16.9); LYMPH % 22.9 % (8-40); MCH 29.6 pg (25.7-33.7); MCHC 34.1 g/dl (32.0-35.9); MEAN CELL VOLUME 86.8 fl (80-96); MEAN PLT VOLUME 7.8 fl (7.5-11.1); MONO % 6.9 % (3.8-10.2); NEUT % 67.2 % (42.8-82.8); PLATELET COUNT 228 K/MM3 (134-434); RBC 4.88 M/mm3 (4.00-5.60); RDW 15.4 % (11.9-15.9); WHITE BLOOD COUNT 6.9 K/mm3 (4.0-10.0)
[2020-06-05 13:32] LABS: INR 1.09 (0.83-1.09); PROTHROMBIN TIME (PATIENT) 13.1 SEC (9.7-13.0)
[2020-06-05 13:41] LABS: POTASSIUM 4.4 mmol/L (3.5-5.1)
[2020-06-05 13:44] LABS: ALBUMIN 4.1 g/dl (3.4-5.0); BLOOD UREA NITROGEN 22.7 mg/dL (7-18); CALCIUM 9.4 mg/dL (8.5-10.1)
[2020-06-05 13:48] LABS: CREATININE 0.9 mg/dL (0.55-1.3)
[2020-06-05 13:49] LABS: BILIRUBIN,TOTAL 0.7 mg/dL (0.2-1); TOT PROT 7.6 g/dl (6.4-8.2)
[2020-06-05 14:34] LABS: URINE APPEARANCE CLEAR; URINE BILIRUBIN NEGATIVE (NEGATIVE); URINE COLOR YELLOW; URINE GLUCOSE (UA) NEGATIVE (NEGATIVE); URINE KETONE NEGATIVE (NEGATIVE); URINE LEUK ESTERASE NEGATIVE (NEGATIVE); URINE NITRITE NEGATIVE (NEGATIVE); URINE PROTEIN NEGATIVE (NEGATIVE); URINE UROBILINOGEN 0.2 mg/dL (0.2-1.0)
[2020-06-05 17:11] VITALS: PULSE 86
[2020-06-05] MEDS ORDERED: CEFTRIAXONE 1 GM/50 ML BAG ONE (19:19)
[2020-06-05] MEDS ORDERED: CEFTRIAXONE IVPB ONE (19:19)
[2020-06-05 19:38] VITALS: BP 130/87; TEMP 98.9
== END 2020-06-05 19:37 | disposition home or self-care (01) ==
LOC: JER 10:34
PROC: 3E02329 Introduction of Other Anti-infective into Muscle, Percutaneous Approach (ICD-10-PCS; principal; 2020-06-05)
PROC: 3E033NZ Introduction of Analgesics, Hypnotics, Sedatives into Peripheral Vein, Percutaneous Approach (ICD-10-PCS; 2020-06-05)
PROC: 3E033GC Introduction of Other Therapeutic Substance into Peripheral Vein, Percutaneous Approach (ICD-10-PCS; 2020-06-05)
PROC: 3E0337Z Introduction of Electrolytic and Water Balance Substance into Peripheral Vein, Percutaneous Approach (ICD-10-PCS; 2020-06-05)
DX: N45.1 Epididymitis (principal); N32.89 Other specified disorders of bladder
CPT/HCPCS: 36415; 74176-TC; 76856-TC; 76870-TC; 80053; 81003; 85025; 85610; 87086; 87491; 87591; 99285-25; J0131

== ENCOUNTER 2020-06-15 11:36 | Emergency (ER) | payer OTHER ==
[2020-06-15 11:48] VITALS: BP 115/76; PULSE 81; TEMP 98.7; BMI 36.3
== END 2020-06-15 12:48 | disposition home or self-care (01) ==
LOC: JER 11:36
DX: R10.2 Pelvic and perineal pain (principal); N45.3 Epididymo-orchitis
CPT/HCPCS: 99283-25; 99284-25

== ENCOUNTER 2020-07-14 08:46 | Day surgery (SDC) | payer OTHER ==
[2020-07-14 09:26] VITALS: BMI 35.6
[2020-07-14 11:19] VITALS: TEMP 98.2
[2020-07-14 11:43] VITALS: BP 124/84; PULSE 76
== END 2020-07-14 11:45 | disposition home or self-care (01) ==
LOC: FASU-ENDO 08:46
PROVIDERS: ATTEND Internal Medicine Gastroenterology
PROC: 0DJD8ZZ Inspection of Lower Intestinal Tract, Via Natural or Artificial Opening Endoscopic (ICD-10-PCS; principal; 2020-07-14 10:56)
DX: Z12.11 Encounter for screening for malignant neoplasm of colon (principal); K57.30 Diverticulosis of large intestine without perforation or abscess without bleeding; Z86.010 Personal history of colon polyps; Z83.71 Family history of colonic polyps
CPT/HCPCS: 82962

== ENCOUNTER 2020-12-10 14:30 | Observation (INO) | payer OTHER ==
[2020-12-10 16:13] LABS: BASO % 0.9 % (0-2.0); EOS % 1.5 % (0-4.5); HEMATOCRIT 40.8 % (35.4-49); HEMOGLOBIN 14.3 GM/dL (11.7-16.9); LYMPH % 18.2 % (8-40); MCH 31.1 pg (25.7-33.7); MEAN CELL VOLUME 88.8 fl (80-96); MEAN PLT VOLUME 7.3 fl (7.5-11.1); MONO % 5.8 % (3.8-10.2); NEUT % 73.6 % (42.8-82.8); PLATELET COUNT 214 10^3/uL (134-434); RBC 4.59 M/mm3 (4.00-5.60); WHITE BLOOD COUNT 7.4 K/mm3 (4.0-10.0)
[2020-12-10 16:25] LABS: CHLORIDE 107 mmol/L (98-107); SODIUM 139 mmol/L (136-145)
[2020-12-10 16:27] LABS: ALBUMIN 3.9 g/dl (3.4-5.0); CALCIUM 8.9 mg/dL (8.5-10.1)
[2020-12-10 16:28] LABS: ANION GAP 8 MMOL/L (8-16); CO2 24 mmol/L (21-32); GLUCOSE,RANDOM 161 mg/dL (74-106)
[2020-12-10 16:31] LABS: CREATININE 1.1 mg/dL (0.55-1.3); SGOT/AST 45 U/L (15-37); SGPT/ALT 61 U/L (13-61)
[2020-12-10 16:32] LABS: BILIRUBIN,TOTAL 0.7 mg/dL (0.2-1); TOT PROT 7.2 g/dl (6.4-8.2)
[2020-12-10 16:34] LABS: ALK PHOS 89 U/L (45-117)
[2020-12-10] MEDS ORDERED: KETOROLAC TROMETHAMINE 15 MG/ML VIAL IVPUSH ONE (17:38)
[2020-12-10] MEDS ORDERED: KETOROLAC TROMETHAMINE 15 MG/ML VIAL ONE (18:00)
[2020-12-10] MEDS ORDERED: ASPIRIN 81 MG CHEWABLE TABLETS PO ONE (18:21)
[2020-12-10] MEDS ORDERED: ASPIRIN 81 MG CHEWABLE TABLETS ONE (18:50)
[2020-12-10] MEDS ORDERED: ALPRAZolam 0.25 MG TABLET PO PRN (22:17)
[2020-12-10] MEDS ORDERED: ENOXAPARIN NA (PORCINE) 40 MG/0.4 ML DISP.SYRIN SQ ONE (22:32)
[2020-12-10] MEDS: ENOXAPARIN NA (PORCINE) 40 MG/0.4 ML DISP.SYRIN SQ SCH (22:47)
[2020-12-10] MEDS ORDERED: ALPRAZolam 0.25 MG TABLET ONE (23:26)
[2020-12-11 00:37] LABS: PH,URINE 5.5 (5.0-8.0); URINE APPEARANCE CLEAR; URINE BILIRUBIN NEGATIVE (NEGATIVE); URINE COLOR YELLOW; URINE GLUCOSE (UA) NEGATIVE (NEGATIVE); URINE KETONE NEGATIVE (NEGATIVE); URINE LEUK ESTERASE NEGATIVE (NEGATIVE); URINE NITRITE NEGATIVE (NEGATIVE); URINE PROTEIN NEGATIVE (NEGATIVE)
[2020-12-11 02:55] VITALS: BMI 35.9
[2020-12-11] MEDS: INSULIN SLIDING SCALE (NOVOLOG) 1 VIAL SQ SCH ×2 (06:41→11:29)
[2020-12-11 06:57] LABS: BASO % 1.1 % (0-2.0); EOS % 2.3 % (0-4.5); HEMOGLOBIN 13.3 GM/dL (11.7-16.9); LYMPH % 35.1 % (8-40); MCH 31.8 pg (25.7-33.7); MCHC 35.9 g/dl (32.0-35.9); MEAN CELL VOLUME 88.6 fl (80-96); MEAN PLT VOLUME 7.5 fl (7.5-11.1); MONO % 7.4 % (3.8-10.2); NEUT % 54.1 % (42.8-82.8); PLATELET COUNT 192 10^3/uL (134-434); RBC 4.18 M/mm3 (4.00-5.60); RDW 14.5 % (11.9-15.9); WHITE BLOOD COUNT 5.8 K/mm3 (4.0-10.0)
[2020-12-11 07:04] LABS: CHLORIDE 108 mmol/L (98-107); SODIUM 140 mmol/L (136-145)
[2020-12-11 07:09] LABS: ALBUMIN 3.4 g/dl (3.4-5.0); CALCIUM 8.3 mg/dL (8.5-10.1); GLUCOSE,RANDOM 123 mg/dL (74-106)
[2020-12-11 07:10] LABS: ANION GAP 7 MMOL/L (8-16); CO2 24 mmol/L (21-32); MAGNESIUM 1.9 mg/dL (1.8-2.4)
[2020-12-11 07:11] LABS: SGOT/AST 35 U/L (15-37); SGPT/ALT 50 U/L (13-61); URIC ACID 6.5 mg/dL (2.6-7.2)
[2020-12-11 07:12] LABS: CHOLESTEROL 170 mg/dL (50-200); CREATININE 0.9 mg/dL (0.55-1.3); TRIGLYCERIDES 241 mg/dL (0-150)
[2020-12-11 07:13] LABS: BILIRUBIN,TOTAL 0.7 mg/dL (0.2-1); LDL CHOLESTEROL (ONLY SJRH) 102 mg/dL (5-100); TOT PROT 6.4 g/dl (6.4-8.2)
[2020-12-11 07:14] LABS: ALK PHOS 77 U/L (45-117); HDL CHOLESTEROL 32 mg/dL (40-60)
[2020-12-11] MEDS ORDERED: ASPIRIN COATED 81 MG TABLET.EC PO SCH (10:00)
[2020-12-11 10:04] VITALS: BP 144/77; PULSE 71; TEMP 97.7
[2020-12-11] MEDS ORDERED: VERAPAMIL HCL 40 MG TABLET PO SCH (11:15)
[2020-12-11] MEDS ORDERED: ATENOLOL 25 MG TABLET (FP) PO SCH (11:15)
[2020-12-11] MEDS ORDERED: VERAPAMIL HCL 80 MG TABLET PO SCH (11:19)
[2020-12-11] MEDS: ENOXAPARIN NA (PORCINE) 40 MG/0.4 ML DISP.SYRIN SQ SCH (11:30)
== END 2020-12-11 12:29 | disposition home or self-care (01) ==
LOC: JER 14:30 → INTOOBSV 19:43 → JERBED 19:43 → UNDOADMOB 19:43 → J4W 12-11 02:23 → JERBED 12-11 02:23 → J4W 12-11 07:43
PROVIDERS: ADMIT Internal Medicine; ATTEND Internal Medicine
PROC: 3E033NZ Introduction of Analgesics, Hypnotics, Sedatives into Peripheral Vein, Percutaneous Approach (ICD-10-PCS; principal; 2020-12-11)
DX: E11.9 Type 2 diabetes mellitus without complications (principal); G89.29 Other chronic pain; M54.9 Dorsalgia, unspecified; M79.602 Pain in left arm; M79.601 Pain in right arm; E66.9 Obesity, unspecified; Z68.35 Body mass index [BMI] 35.0-35.9, adult; E78.5 Hyperlipidemia, unspecified; I10 Essential (primary) hypertension; F41.9 Anxiety disorder, unspecified; Z91.018 Allergy to other foods; Z88.6 Allergy status to analgesic agent; G47.33 Obstructive sleep apnea (adult) (pediatric); F42.9 Obsessive-compulsive disorder, unspecified; M41.9 Scoliosis, unspecified; J45.909 Unspecified asthma, uncomplicated; N40.0 Benign prostatic hyperplasia without lower urinary tract symptoms; M10.9 Gout, unspecified
CPT/HCPCS: 36415; 71046-TC-FY; 80053; 80061; 81003; 82550; 82962; 83036; 83735; 84100; 84443; 84484; 84550; 85025; 93005; 93010; 93306-TC; 96374; 99285-25; C9803; G0378; U0003; U0005

== ENCOUNTER 2021-01-16 14:18 | Observation (INO) | payer OTHER ==
[2021-01-16 14:37] VITALS: BMI 35.3
[2021-01-16 16:14] LABS: EOS % 1.7 % (0-4.5); HEMATOCRIT 40.1 % (35.4-49); LYMPH % 25.3 % (8-40); MCH 31.2 pg (25.7-33.7); MEAN CELL VOLUME 89.2 fl (80-96); MEAN PLT VOLUME 7.4 fl (7.5-11.1); MONO % 5.7 % (3.8-10.2); NEUT % 66.3 % (42.8-82.8); PLATELET COUNT 236 10^3/uL (134-434); RDW 15.2 % (11.9-15.9); WHITE BLOOD COUNT 7.9 K/mm3 (4.0-10.0)
[2021-01-16 16:30] LABS: ALBUMIN 3.7 g/dl (3.4-5.0); CALCIUM 8.6 mg/dL (8.5-10.1)
[2021-01-16 16:31] LABS: BLOOD UREA NITROGEN 17.8 mg/dL (7-18); MAGNESIUM 2.2 mg/dL (1.8-2.4)
[2021-01-16 16:34] LABS: CREATININE 0.9 mg/dL (0.55-1.3); PHOSPHOROUS 2.8 mg/dL (2.5-4.9)
[2021-01-16 16:35] LABS: BILIRUBIN,TOTAL 0.5 mg/dL (0.2-1); TOT PROT 6.9 g/dl (6.4-8.2)
[2021-01-16 16:39] LABS: N-TERMINAL BNP 19.8 pg/ml (5-125)
[2021-01-16 17:34] LABS: INR 1.03 (0.83-1.09); PROTHROMBIN TIME (PATIENT) 12.1 SEC (9.7-13.0)
[2021-01-16 17:37] LABS: ACTIVATED PTT 29.3 SECONDS (25.2-36.5)
[2021-01-16] MEDS ORDERED: SPIRONOLACTONE 25 MG TABLET PO SCH (22:00)
[2021-01-16] MEDS ORDERED: PANTOPRAZOLE 40 MG TABLET PO SCH (22:00)
[2021-01-16] MEDS ORDERED: ATENOLOL 25 MG TABLET (FP) ONE (22:53)
[2021-01-16] MEDS ORDERED: PANTOPRAZOLE 40 MG TABLET ONE (22:53)
[2021-01-16] MEDS ORDERED: SPIRONOLACTONE 25 MG TABLET ONE (22:54)
[2021-01-16] MEDS ORDERED: hydrALAZINE HCL 25 MG TABLET (FP) ONE (22:54)
[2021-01-16] MEDS: ATENOLOL 25 MG TABLET (FP) PO SCH (22:57)
[2021-01-16] MEDS: hydrALAZINE HCL 25 MG TABLET (FP) PO SCH (22:57)
[2021-01-17] MEDS: VERAPAMIL HCL 80 MG TABLET PO SCH ×2 (00:29→10:46)
[2021-01-17] MEDS ORDERED: clonazePAM 0.5 MG TABLET PO PRN (01:08)
[2021-01-17] MEDS: metFORMIN HCL 500 MG TABLET (FP) PO SCH ×2 (06:21→16:37)
[2021-01-17 06:44] VITALS: TEMP 98
[2021-01-17 07:52] LABS: CHLORIDE 108 mmol/L (98-107); SODIUM 140 mmol/L (136-145)
[2021-01-17 07:55] LABS: CALCIUM 8.5 mg/dL (8.5-10.1)
[2021-01-17 07:56] LABS: ANION GAP 4 MMOL/L (8-16); BLOOD UREA NITROGEN 19.2 mg/dL (7-18); CO2 28 mmol/L (21-32); GLUCOSE,RANDOM 125 mg/dL (74-106)
[2021-01-17 07:59] LABS: CREATININE 0.9 mg/dL (0.55-1.3)
[2021-01-17 08:03] LABS: IRON SERUM 56 ug/dL (50-175)
[2021-01-17 08:04] LABS: TOTAL IRON BINDING CAPACITY 338 ug/dL (250-450)
[2021-01-17] MEDS ORDERED: PT OWN MED DRAWER 7, Y5N ONE (08:58)
[2021-01-17] MEDS: ATENOLOL 25 MG TABLET (FP) PO SCH (09:06)
[2021-01-17] MEDS: hydrALAZINE HCL 25 MG TABLET (FP) PO SCH (09:06)
[2021-01-17] MEDS ORDERED: AMITRIPTYLINE HCL 25 MG TABLET PO ONE (09:54)
[2021-01-17] MEDS ORDERED: ASPIRIN 81 MG CHEWABLE TABLETS PO SCH (10:00)
[2021-01-17] MEDS ORDERED: ALLOPURINOL 300 MG TABLET (FP) PO SCH (10:00)
[2021-01-17] MEDS ORDERED: TOLTERODINE TARTRATE LA 2 MG CAP.SR.24H PO SCH (10:00)
[2021-01-17] MEDS ORDERED: CLOPIDOGREL BISULFATE 75 MG TABLET (FP) PO SCH (10:00)
[2021-01-17 10:03] LABS: BASO % 0.8 % (0-2.0); EOS % 2.4 % (0-4.5); HEMATOCRIT 39.7 % (35.4-49); HEMOGLOBIN 13.8 GM/dL (11.7-16.9); LYMPH % 25.3 % (8-40); MCH 31.4 pg (25.7-33.7); MCHC 34.9 g/dl (32.0-35.9); MEAN CELL VOLUME 90.1 fl (80-96); MONO % 7.1 % (3.8-10.2); NEUT % 64.4 % (42.8-82.8); PLATELET COUNT 204 10^3/uL (134-434); RDW 14.9 % (11.9-15.9); WHITE BLOOD COUNT 6.5 K/mm3 (4.0-10.0)
[2021-01-17 10:03] LABS: ALBUMIN 3.4 g/dl (3.4-5.0); MAGNESIUM 2.2 mg/dL (1.8-2.4)
[2021-01-17 10:06] LABS: SGPT/ALT 39 U/L (13-61)
[2021-01-17 10:07] LABS: SGOT/AST 33 U/L (15-37)
[2021-01-17 10:08] LABS: BILIRUBIN,TOTAL 0.5 mg/dL (0.2-1); TOT PROT 6.4 g/dl (6.4-8.2)
[2021-01-17 10:09] LABS: ALK PHOS 85 U/L (45-117)
[2021-01-17 10:22] VITALS: PULSE 68
[2021-01-17 17:11] VITALS: BP 130/80
[2021-01-17] MEDS ORDERED: AMITRIPTYLINE HCL 25 MG TABLET PO SCH (22:00)
[2021-01-18] MEDS ORDERED: TAMSULOSIN HCL 0.4 MG CAP PO SCH (08:30)
[2021-01-19] MEDS ORDERED: TAMSULOSIN HCL 0.4 MG CAP PO SCH (08:30)
== END 2021-01-17 18:48 | disposition home or self-care (01) ==
LOC: JER 14:18 → JERBED 18:29 → J4W 22:58
PROVIDERS: ADMIT Internal Medicine; ATTEND Nurse Practitioner Family
DX: I25.119 Atherosclerotic heart disease of native coronary artery with unspecified angina pectoris (principal); I11.9 Hypertensive heart disease without heart failure; M41.9 Scoliosis, unspecified; G89.29 Other chronic pain; R07.89 Other chest pain; M54.50 Low back pain, unspecified; G47.33 Obstructive sleep apnea (adult) (pediatric); Z95.1 Presence of aortocoronary bypass graft; Z87.891 Personal history of nicotine dependence; Z98.61 Coronary angioplasty status; E11.9 Type 2 diabetes mellitus without complications; M48.02 Spinal stenosis, cervical region; G50.0 Trigeminal neuralgia; M25.512 Pain in left shoulder; M25.511 Pain in right shoulder; E78.5 Hyperlipidemia, unspecified; Z91.013 Allergy to seafood
CPT/HCPCS: 36415; 71045-TC-FY; 72125-TC; 80048; 80053; 82550; 82728; 83036; 83540; 83550; 83735; 83880; 84100; 84484; 85025; 85610; 85730; 93005; 93010; 99285-25; C9803; G0378; U0003; U0005

== ENCOUNTER 2021-02-01 08:01 | Emergency (ER) | payer OTHER ==
[2021-02-01 08:20] VITALS: PULSE 63; TEMP 97; BMI 34.5
[2021-02-01 09:58] VITALS: BP 141/94
== END 2021-02-01 10:18 | disposition home or self-care (01) ==
LOC: JER 08:01
DX: R42 Dizziness and giddiness (principal)
CPT/HCPCS: 93005; 93010; 99283-25

== ENCOUNTER 2021-02-01 21:22 | Emergency (ER) | payer OTHER ==
[2021-02-01 21:33] VITALS: BMI 34.5
[2021-02-01 23:38] VITALS: TEMP 97.3
[2021-02-01] MEDS ORDERED: ACETAMINOPHEN 325 MG TABLET (FP) PO ONE (23:54)
[2021-02-02] MEDS ORDERED: ACETAMINOPHEN 325 MG TABLET (FP) ONE (00:30)
== END 2021-02-02 01:45 | disposition home or self-care (01) ==
LOC: JER 21:22
DX: R42 Dizziness and giddiness (principal)
CPT/HCPCS: 36415; 82550; 84484; 93005; 93010; 99284-25

== ENCOUNTER 2021-02-18 09:10 | Emergency (ER) | payer OTHER ==
[2021-02-18 09:27] VITALS: TEMP 98.3; BMI 34.9
[2021-02-18] MEDS ORDERED: SODIUM CHLORIDE 0.9% 500 ML INFUS.BAG IV ONE (09:45)
[2021-02-18 10:20] LABS: BASO % 0.9 % (0-2.0); EOS % 0.9 % (0-4.5); HEMATOCRIT 41.2 % (35.4-49); HEMOGLOBIN 14.7 GM/dL (11.7-16.9); MCH 31.6 pg (25.7-33.7); MCHC 35.6 g/dl (32.0-35.9); MEAN CELL VOLUME 88.6 fl (80-96); MEAN PLT VOLUME 7.4 fl (7.5-11.1); MONO % 6.5 % (3.8-10.2); NEUT % 77.7 % (42.8-82.8); PLATELET COUNT 212 10^3/uL (134-434); RBC 4.65 M/mm3 (4.00-5.60); RDW 15.3 % (11.9-15.9); WHITE BLOOD COUNT 8.9 K/mm3 (4.0-10.0)
[2021-02-18 10:41] LABS: CHLORIDE 104 mmol/L (98-107); SODIUM 135 mmol/L (136-145)
[2021-02-18 10:43] LABS: CALCIUM 8.9 mg/dL (8.5-10.1)
[2021-02-18 10:43] LABS: EPI CELLS 2 /uL (0-25.1); HYALINE CASTS 3 /uL (0-3.1); PH,URINE 5.5 (5.0-8.0); URINE APPEARANCE CLEAR; URINE BACTERIA 2 /uL (0-1359); URINE BILIRUBIN NEGATIVE (NEGATIVE); URINE COLOR DK YELLOW; URINE GLUCOSE (UA) NEGATIVE (NEGATIVE); URINE KETONE TRACE (NEGATIVE); URINE LEUK ESTERASE TRACE (NEGATIVE); URINE NITRITE NEGATIVE (NEGATIVE); URINE PROTEIN 2+ (NEGATIVE); URINE WBC 8 /uL (0-25.8)
[2021-02-18 10:44] LABS: ALBUMIN 3.5 g/dl (3.4-5.0); ANION GAP 10 MMOL/L (8-16); BLOOD UREA NITROGEN 22.1 mg/dL (7-18); CO2 21 mmol/L (21-32); GLUCOSE,RANDOM 180 mg/dL (74-106); MAGNESIUM 1.9 mg/dL (1.8-2.4)
[2021-02-18 10:47] LABS: CREATININE 1.1 mg/dL (0.55-1.3); SGOT/AST 39 U/L (15-37); SGPT/ALT 45 U/L (13-61)
[2021-02-18 10:48] LABS: TOT PROT 6.9 g/dl (6.4-8.2)
[2021-02-18 10:49] LABS: BILIRUBIN,TOTAL 0.8 mg/dL (0.2-1)
[2021-02-18 10:51] LABS: ALK PHOS 88 U/L (45-117)
[2021-02-18 10:54] LABS: URINE RBC 41.2 /uL (0-23.9)
[2021-02-18 11:36] VITALS: BP 118/71; PULSE 60
== END 2021-02-18 11:37 | disposition home or self-care (01) ==
LOC: JER 09:10
DX: R53.1 Weakness (principal)
CPT/HCPCS: 36415; 71045-TC-FY; 80053; 81003; 82550; 83735; 84439; 84443; 84484; 85025; 87086; 93005; 93010; 99285-25; C9803; U0003; U0005

== ENCOUNTER 2021-04-25 07:02 | Emergency (ER) | payer OTHER ==
[2021-04-25 07:27] VITALS: BP 148/84; PULSE 68; TEMP 97.3; BMI 33.9
[2021-04-25] MEDS ORDERED: METOCLOPRAMIDE HCL INJECTION 10 MG/2 ML VIAL IVPB ONE (08:06)
[2021-04-25] MEDS ORDERED: SODIUM CHLORIDE 1,000 ML IV STA (08:06)
[2021-04-25] MEDS ORDERED: METOCLOPRAMIDE HCL INJECTION 10 MG/2 ML VIAL ONE (08:24)
== END 2021-04-25 10:49 | disposition home or self-care (01) ==
LOC: JER 07:02
PROC: 3E033NZ Introduction of Analgesics, Hypnotics, Sedatives into Peripheral Vein, Percutaneous Approach (ICD-10-PCS; principal; 2021-04-25)
PROC: 3E0337Z Introduction of Electrolytic and Water Balance Substance into Peripheral Vein, Percutaneous Approach (ICD-10-PCS; 2021-04-25)
DX: R51.9 Headache, unspecified (principal)
CPT/HCPCS: 96361; 96375; 99284-25

== ENCOUNTER 2021-07-10 08:50 | Emergency (ER) | payer OTHER ==
[2021-07-10 09:01] VITALS: BMI 33.7
[2021-07-10 09:39] LABS: EOS % 1.9 % (0-4.5); HEMATOCRIT 39.5 % (35.4-49); HEMOGLOBIN 14.1 GM/dL (11.7-16.9); LYMPH % 22.9 % (8-40); MCH 30.9 pg (25.7-33.7); MCHC 35.7 g/dl (32.0-35.9); MEAN CELL VOLUME 86.6 fl (80-96); MEAN PLT VOLUME 6.9 fl (7.5-11.1); MONO % 6.3 % (3.8-10.2); NEUT % 67.9 % (42.8-82.8); PLATELET COUNT 196 10^3/uL (134-434); RBC 4.56 M/mm3 (4.00-5.60); RDW 14.7 % (11.9-15.9); WHITE BLOOD COUNT 5.7 K/mm3 (4.0-10.0)
[2021-07-10 10:02] LABS: ALBUMIN 3.7 g/dl (3.4-5.0); CALCIUM 8.8 mg/dL (8.5-10.1)
[2021-07-10 10:03] LABS: MAGNESIUM 2.2 mg/dL (1.8-2.4)
[2021-07-10 10:05] LABS: BILIRUBIN,TOTAL 0.9 mg/dL (0.2-1)
[2021-07-10 10:06] LABS: TOT PROT 6.5 g/dl (6.4-8.2)
[2021-07-10 10:22] LABS: INR 1.03 (0.83-1.09); PROTHROMBIN TIME (PATIENT) 11.9 SEC (9.7-13.0)
[2021-07-10 10:24] LABS: ACTIVATED PTT 33.7 SECONDS (25.2-36.5)
[2021-07-10 13:11] VITALS: BP 125/80; PULSE 90; TEMP 98
== END 2021-07-10 13:25 | disposition home or self-care (01) ==
LOC: JER 08:50
DX: R07.89 Other chest pain (principal)
CPT/HCPCS: 36415; 71046-TC-FY; 80053; 83735; 84484; 85025; 85610; 85730; 93005; 93010; 99285-25

== ENCOUNTER 2021-11-28 10:26 | Emergency (ER) | payer OTHER ==
[2021-11-28 10:40] VITALS: BMI 33.9
[2021-11-28] MEDS ORDERED: METOCLOPRAMIDE HCL INJECTION 10 MG/2 ML VIAL IVPB ONE (11:33)
[2021-11-28] MEDS ORDERED: SODIUM CHLORIDE 1,000 ML IV STA (11:33)
[2021-11-28] MEDS ORDERED: METOCLOPRAMIDE HCL INJECTION 10 MG/2 ML VIAL ONE (11:49)
[2021-11-28 12:21] LABS: BASO % 0.8 % (0-2.0); EOS % 3.3 % (0-4.5); HEMATOCRIT 41.2 % (35.4-49); HEMOGLOBIN 14.9 GM/dL (11.7-16.9); LYMPH % 20.8 % (8-40); MCH 32.5 pg (25.7-33.7); MCHC 36.2 g/dl (32.0-35.9); MEAN CELL VOLUME 89.7 fl (80-96); MEAN PLT VOLUME 7.1 fl (7.5-11.1); MONO % 5.3 % (3.8-10.2); NEUT % 69.8 % (42.8-82.8); PLATELET COUNT 235 10^3/uL (134-434); RBC 4.59 M/mm3 (4.00-5.60); RDW 15.1 % (11.9-15.9); WHITE BLOOD COUNT 8.6 K/mm3 (4.0-10.0)
[2021-11-28 12:46] LABS: CHLORIDE 108 mmol/L (98-107); SODIUM 138 mmol/L (136-145)
[2021-11-28 12:47] LABS: CALCIUM 9.2 mg/dL (8.5-10.1)
[2021-11-28 12:48] LABS: ALBUMIN 4.1 g/dl (3.4-5.0); ANION GAP 6 MMOL/L (8-16); BLOOD UREA NITROGEN 22.8 mg/dL (7-18); CO2 24 mmol/L (21-32); GLUCOSE,RANDOM 129 mg/dL (74-106)
[2021-11-28 12:51] LABS: CREATININE 0.8 mg/dL (0.55-1.3); SGOT/AST 13 U/L (15-37); SGPT/ALT 21 U/L (13-61)
[2021-11-28 12:53] LABS: TOT PROT 7.4 g/dl (6.4-8.2)
[2021-11-28 12:54] LABS: ALK PHOS 99 U/L (45-117)
[2021-11-28 18:09] VITALS: BP 150/82; PULSE 75; RESP 18; TEMP 98.1
== END 2021-11-28 17:00 | disposition home or self-care (01) ==
LOC: JER 10:26
PROC: 3E033GC Introduction of Other Therapeutic Substance into Peripheral Vein, Percutaneous Approach (ICD-10-PCS; principal; 2021-11-28)
DX: M54.2 Cervicalgia (principal)
CPT/HCPCS: 0241U-QW; 36415; 70450-TC; 70496-TC; 70498-TC; 80053; 84484; 85025; 93005; 93010; 99285-25; Q9967

== ENCOUNTER 2022-04-16 01:04 | Emergency (ER) | payer OTHER ==
[2022-04-16 01:20] VITALS: BP 152/98; PULSE 81; RESP 18; TEMP 97.5; BMI 32.3
[2022-04-16] MEDS ORDERED: MECLIZINE HCL 25 MG TABLET (FP) PO ONE (03:38)
[2022-04-16] MEDS ORDERED: MECLIZINE HCL 25 MG TABLET (FP) ONE (03:42)
[2022-04-16 04:24] LABS: BASO % 0.8 % (0-2.0); EOS % 1.3 % (0-4.5); HEMATOCRIT 43.3 % (35.4-49); HEMOGLOBIN 15.4 GM/dL (11.7-16.9); LYMPH % 21.6 % (8-40); MCH 31.2 pg (25.7-33.7); MCHC 35.4 g/dl (32.0-35.9); MONO % 5.6 % (3.8-10.2); NEUT % 70.7 % (42.8-82.8); PLATELET COUNT 245 10^3/uL (134-434); RBC 4.92 M/mm3 (4.00-5.60); RDW 14.2 % (11.9-15.9); WHITE BLOOD COUNT 10.1 K/mm3 (4.0-10.0)
[2022-04-16 04:28] LABS: CALCIUM 9.3 mg/dL (8.5-10.1)
[2022-04-16 04:29] LABS: ALBUMIN 3.9 g/dl (3.4-5.0); MAGNESIUM 2.1 mg/dL (1.8-2.4)
[2022-04-16 04:32] LABS: CREATININE 0.9 mg/dL (0.55-1.3)
[2022-04-16 04:33] LABS: BILIRUBIN,TOTAL 0.6 mg/dL (0.2-1)
[2022-04-16 04:34] LABS: TOT PROT 7.2 g/dl (6.4-8.2)
[2022-04-16] MEDS ORDERED: ACETAMINOPHEN 1000 MG/100 ML BAG IVPB ONE (05:20)
[2022-04-16] MEDS ORDERED: METOCLOPRAMIDE HCL INJECTION 10 MG/2 ML VIAL IVPB ONE (05:20)
[2022-04-16] MEDS ORDERED: METOCLOPRAMIDE HCL INJECTION 10 MG/2 ML VIAL ONE (05:23)
[2022-04-16] MEDS ORDERED: ACETAMINOPHEN INJECTION 100 ML IVPB ONE (05:24)
[2022-04-16] MEDS ORDERED: hydrALAZINE HCL 10 MG TABLET PO ONE (06:06)
[2022-04-16] MEDS ORDERED: VERAPAMIL HCL 40 MG TABLET PO ONE (06:06)
[2022-04-16] MEDS ORDERED: hydrALAZINE HCL 10 MG TABLET ONE (06:12)
== END 2022-04-16 07:10 | disposition home or self-care (01) ==
LOC: JER 01:04
PROC: 3E033GC Introduction of Other Therapeutic Substance into Peripheral Vein, Percutaneous Approach (ICD-10-PCS; principal; 2022-04-16)
DX: R42 Dizziness and giddiness (principal)
CPT/HCPCS: 36415; 71045-TC-FY; 80053; 83735; 84484; 85025; 93005; 93010; 99285-25